=== PATIENT | female | born 1955 | race Two or more races ===

== ENCOUNTER 2023-10-07 16:30 | Emergency (ER) | payer MEDICARE, OTHER ==
[2023-10-07] MEDS ORDERED: HYDROcod/ACETAM 5/325 MG TABLET PO STA (16:55)
[2023-10-07 16:57] VITALS: BP 174/84; O2SAT 98
--- NOTE | 2023-10-07 16:57 | ED Physician Documentation ---
PD HPI MAJOR TRAUMA - Stated complaint Stated Complaint: GLF/BACK INJ - Chief complaint Chief Complaint: Trauma Ext - History obtained from History obtained from: Patient - Additional information Additional information: 68-year-old woman with type 2 diabetes, does take aspirin daily. She was up on a file cabinet last night painting and she fell. She fell on outstretched wrist to try to prevent a head injury but still hit her head. She possibly lost consciousness but is not 100% sure. She complains of severe headache, back pain, and left arm pain especially the wrist. She has tried ibuprofen without relief. PD PAST MEDICAL HISTORY - Past Medical History Past Medical History: Yes Cardiovascular: Hypertension, High cholesterol Endocrine/Autoimmune: Type 2 diabetes - Past Surgical History Past Surgical History: Yes - Present Medications Home Medications: Ambulatory Orders Medication Instructions Recorded Confirmed HYDROcod/ACETAM 5/325 [[place] 5/325] 1 - 2 tab PO Q6H PRN #15 tablet 10/07/23 - Allergies Allergies/Adverse Reactions: Allergies Allergy/AdvReac Type Severity Reaction Status Date / Time metformin AdvReac Unknown Verified 10/07/23 16:48 - Social History Does the pt smoke?: No Smoking Status: Never smoker PD ED PE NORMAL - Vitals Vital signs reviewed: Yes - General General: Alert and oriented X 3, No acute distress - HEENT HEENT: PERRL, EOMI - Neck Neck: No bony TTP - Back Back: Other (Quite tender to the upper and mid thoracic as well as upper lumbar spine) - Extremities Extremities: Other (Left wrist swollen and very tender, she is also tender about the elbow and left shoulder but without hand tenderness. Normal neurovascular function in the left hand.) - Neuro Neuro: Alert and oriented X 3, No motor deficit, No sensory deficit, Normal s peech Eye Opening: Spontaneous Motor: Obeys Commands Verbal: Oriented GCS Score: 15 Results - Vitals Vitals: Vital Signs - 24 hr 10/07/23 16:45 Temperature 36.7 C Heart Rate 90 Respiratory 15 Rate Blood Pressure 174/84 H O2 Saturation 98 - Rads (name of study) X-ray left shoulder and elbow are negative for pathology or fracture. Relevant Findings:: Final report received, [facility] independent interpretation of test Left wrist x-ray does demonstrate a mild distal radius fracture. Relevant Findings:: Final report received, [facility] independent interpretation of test CT of the head, C-spine, TL spines are negative for fracture. Does have degenerative and other incidental findings. Relevant Findings:: Final report received, [facility] independent interpretation of test Procedures - Splint (location) - Minor Left wrist Splint applied by: Physician Type of splint: Fiberglass, Short arm, Volar cock up Other: Patient tolerated well, No complications, Neurovascular intact PD Medical Decision Making - ED course ED course: 68-year-old woman took a fall and has a wrist fracture, but multiple other sites of pain. She was thoroughly imaged without other pertinent positive acute findings. Feeling much better after 1 mg of Dilaudid IM and splinting of the left wrist. Departure - Departure Disposition: 01 Home, Self Care Clinical Impression: Injury resulting from fall from height Back injury Qualifiers: Encounter type: initial encounter Qualified Code(s): S39.92XA - Unspecified injury of lower back, initial encounter Wrist fracture, left Qualifiers: Encounter type: initial encounter Fracture type: closed Qualified Code(s): S62.102A - Fracture of unspecified carpal bone, left wrist, initial encounter for closed fracture Left elbow contusion Qualifiers: Encounter type: initial encounter Qualified Code(s): S50.02XA - Contusion of left elbow, initial encounter Injury of shoulder, left Qualifiers: Encounter type: initial encounter Qualified Code(s): S49.92XA - Unspecified injury of left shoulder and upper arm, initial encounter Head injury Qualifiers: Encounter type: initial encounter Qualified Code(s): S09.90XA - Unspecified injury of head, initial encounter Condition: Good Record reviewed to determine appropriate education?: Yes Instructions: ED Fx Colles Wrist No Redu Requ Follow-Up: Orthopedic Care [Provider Group] Prescriptions: HYDROcod/ACETAM 5/325 [[place] 5/325] 1 - 2 tab PO Q6H PRN #15 tablet PRN Reason: Pain Comments: I sent your prescription electronically to [facility]. We imaged your entire spine and your head as well as the left shoulder and left elbow. Only the wrist fracture was evidence. Keep that splint on and dry and call the orthopedics office tomorrow for an appointment in a week or so for reevaluation and likely casting. The fracture looks fairly mild so doubt they would need to consider surgery. Return for new or worsening symptoms. I am prescribing a short course of narcotic pain medication for you. These are potentially dangerous and addictive medications that should be used carefully. These medications may constipate you. Take an wkhd-ydr-oydttfg stool softener (docusate) twice daily with plenty of water while taking these medications. If you go 24 hours without a bowel movement, take tyfc-oqg-qpduzhs miralax, per package instructions. Do not drink or drive while taking these medications. If you received narcotic or sedating medications while in the emergency department, do not drive for 24 hours. Store this medication in a safe, secure place and out of reach of children. It is a violation of federal law to give or sell this medication to another person or to use in a manner other than prescribed. The ED will not refill narcotic prescriptions, including prescriptions lost or stolen. To dispose of unwanted medications: 1. [facility] provides a [facility] box for medication in pill form only (no liquids) 8:00 am to 4:30 p.m. Sunday-Sunday in the lobby of the [facility], [address] [place] [address]. Empty pills into ziplock bag before disposal. Call [phone] for information. 2.[employer] is a free service available to all [facility] residents. Go to [email or web address] Note that many narcotic pain relievers also contain Tylenol/acetaminophen. Please ensure that your total dose of acetaminophen from all sources does not exceed 3 g (3000 mg) per day. Forms: PCP List Discharge Date/Time: 10/07/23 19:14
--- NOTE | 2023-10-07 17:35 | XRAY Report ---
PROCEDURE: Shoulder 2+V LT INDICATIONS: fall, arm inj TECHNIQUE: 3 views of the shoulder were acquired. COMPARISON: Correlation is made with the accompanying plain films. FINDINGS: Bones: No fractures or dislocations. No suspicious bony lesions. Visualized ribs appear intact. M ild, age-appropriate degenerative change is seen. Soft tissues: No suspicious soft tissue calcifications. The visualized lungs are within normal limi ts. IMPRESSION: No acute bony abnormality. If it would be helpful for clinical management decision making, please consider a dedicated, schedule d shoulder MRI for further evaluation (assuming that there is no contraindication). Reviewed by: Jeffry Knight MD on 10/07/2023 4:33 PM [facility] Approved by: Jeffry Knight MD on 10/07/2023 4:33 PM [facility] Station ID: [id number]
--- NOTE | 2023-10-07 17:35 | XRAY Report ---
PROCEDURE: Elbow 3+V LT INDICATIONS: fall, arm inj TECHNIQUE: 3 views of the elbow were acquired. COMPARISON: Correlation is made with the accompanying plain films. FINDINGS: Bones: No fractures or dislocations. No suspicious bony lesions. Soft tissues: No effusion. No suspicious soft tissue calcifications or masses. IMPRESSION: No acute bony abnormality. Reviewed by: Jeffry Knight MD on 10/07/2023 4:34 PM [facility] Approved by: Jeffry Knight MD on 10/07/2023 4:34 PM [facility] Station ID: [id number]
--- NOTE | 2023-10-07 17:37 | XRAY Report ---
PROCEDURE: Wrist 3+V LT INDICATIONS: fall, wrist inj TECHNIQUE: 3 views of the wrist were acquired. COMPARISON: Correlation is made with the accompanying imaging. FINDINGS: Bones: There is irregularity seen of the distal radius, with suspicion for a minimally displaced, in tra-articular fracture. No associated ulnar fracture is seen. Focal degenerative change is seen involving the first carpometacarpal joint, with milder degenerative changes seen elsewhere. No suspicious lytic or blastic lesions are seen. Soft tissues: No suspicious soft tissue calcifications or masses. IMPRESSION: There is suspicion for a distal radius fracture, although this is not well seen. Please consider a follow-up wrist CT for further evaluation, if clinically appropriate. Reviewed by: Jeffry Knight MD on 10/07/2023 4:[address] [facility] Approved by: Jeffry Knight MD on 10/07/2023 4:[address] [facility] Station ID: [id number]
[2023-10-07] MEDS ORDERED: HYDROmorphone 1 MG/ML CARPUJECT IM STA (17:55)
--- NOTE | 2023-10-07 18:18 | CT Report ---
PROCEDURE: Head WO INDICATIONS: head inj TECHNIQUE: Noncontrast 4.5 mm thick angled axial sections acquired from the foramen magnum to the vertex. For r adiation dose reduction, the following was used: automated exposure control, adjustment of mA and/or kV according to patient size. COMPARISON: Correlation is made with the accompanying imaging. FINDINGS: Image quality: Excellent. CSF spaces: Basal cisterns are patent. No extra-axial fluid collections. Ventricles are normal in size and shape. Brain: No midline shift. No intracranial masses or hemorrhage. Weeks-white matter interface is norm al. Skull and face: Calvarium and visualized facial bones are intact, without suspicious lesions. Sinuses: Visualized sinuses and mastoids are clear. IMPRESSION: No intracranial hemorrhage is seen. No significant intracranial abnormality is seen. Reviewed by: Jeffry Knight MD on 10/07/2023 5:17 PM [facility] Approved by: Jeffry Knight MD on 10/07/2023 5:17 PM [facility] Station ID: [id number]
--- NOTE | 2023-10-07 18:19 | CT Report ---
PROCEDURE: Cervical Spine WO INDICATIONS: fall neck inj TECHNIQUE: Noncontrast 3 mm thick sections acquired from the skull base to the T4 level. Sagittal and coronal r eformats were then constructed. For radiation dose reduction, the following was used: automated exp osure control, adjustment of mA and/or kV according to patient size. COMPARISON: Correlation is made with the accompanying imaging. FINDINGS: Image quality: Excellent. Bones: No fractures or dislocations. Visualized superior ribs are intact. There is moderate disc space narrowing seen at C5-C6, with associated endplate irregularity and scler osis and mild posteriorly directed endplate osteophytes. At C6-C7, there is at least moderate disc sp andrea narrowing, with mild posterior directed endplate osteophytes. Milder degenerative changes are see n elsewhere. Soft tissues: Prevertebral soft tissues are normal in thickness. No paravertebral hematomas. No ap ical pneumothoraces. Atherosclerotic calcification is seen. IMPRESSION: Negative for acute cervical spine fracture. Cervical spine degenerative changes are seen, which are worst inferiorly. Reviewed by: Jeffry Knight MD on 10/07/2023 5:18 PM [facility] Approved by: Jeffry Knight MD on 10/07/2023 5:18 PM [facility] Station ID: [id number]
--- NOTE | 2023-10-07 18:22 | CT Report ---
PROCEDURE: Thoracic Spine WO INDICATIONS: fall, back inj TECHNIQUE: Noncontrast 3 mm thick sections acquired through the region of interest in the thoracic spine. Sagit sanjiv and coronal reformats were then constructed. For radiation dose reduction, the following was used : automated exposure control, adjustment of mA and/or kV according to patient size. COMPARISON: Correlation is made with the accompanying imaging. FINDINGS: Image quality: This study is limited by quantum mottle artifact. Bones: There is normal overall bony alignment. No acute vertebral body compression fractures. No s uspicious sclerotic or lytic bony lesions. Central spinal canal is of normal overall caliber. At the T6-T7 level, there is focal endplate sclerosis, with a posteriorly directed central disc osteo phyte protrusion, as on series 4 image 56 and on series 8 image 29. Moderate central canal narrowing is seen. Milder degenerative changes are seen elsewhere. Several areas of vertebral body hemangiomas can be seen, with prominent vertically oriented trabecula tions within the vertebral bodies. Soft tissues: No paravertebral masses or hematomas. Visualized posteromedial lungs appear clear. M ild to moderate coronary artery calcification is seen. IMPRESSION: Negative for acute fracture. Focal degenerative change is seen at T6-T7. Additional findings: Several vertebral body hemangiomas Reviewed by: Jeffry Knight MD on 10/07/2023 5:21 PM [facility] Approved by: Jeffry Knight MD on 10/07/2023 5:21 PM [facility] Station ID: [id number]
--- NOTE | 2023-10-07 18:27 | CT Report ---
PROCEDURE: Lumbar Spine WO INDICATIONS: fall, back inj TECHNIQUE: Noncontrast 3 mm thick sections acquired from the T12 level to the sacrum. Sagittal and coronal refo rmats were constructed. For radiation dose reduction, the following was used: automated exposure co ntrol, adjustment of mA and/or kV according to patient size. COMPARISON: Correlation is made with the accompanying imaging. FINDINGS: Image quality: This study is limited by quantum mottle artifact. Bones: No acute vertebral body compression fractures. No suspicious lytic or blastic bony lesions. Central spinal caliber is of normal overall caliber. No pars defects. Minimal levoconvex lumbar sclerotic curvature is seen. A right-sided sacral stimulator is seen. T12-L1: Normal in appearance. L1-L2: No significant abnormality is seen. L2-L3: Mild loss of disc height is seen. Moderate disc bulge is seen, which is eccentric to the le ft. There is mild to moderate right-sided and at least moderate left-sided neuroforaminal narrowing. Moderate central canal narrowing is seen. L3-L4: The disc height is relatively well preserved. Moderate disc bulge is seen, with a central di sc protrusion. There is at least moderate bilateral neuroforaminal narrowing seen. At least moderate central canal narrowing is seen. L4-L5: The disc height is well-preserved. Moderate disc bulge is seen at this level. Moderate fac et hypertrophy is seen. Moderate bilateral neural foraminal narrowing is seen. Moderate central can al narrowing is seen. L5-S1: Mild to moderate loss of disc height is seen. Vacuum disc phenomenon is seen at this level. Moderate disc bulge is seen, with a central disc osteophyte protrusion. Moderate facet hypertrophy is seen. Moderate bilateral neural foraminal narrowing is seen. Moderate central canal narrowing is seen. Soft tissues: No retroperitoneal masses or hematomas. Visualized aorta is normal in caliber. Ather osclerotic calcification is seen. IMPRESSION: Negative for acute fracture. Multiple levels of lumbar spine degenerative change can be seen, which are overall worst at the L5-S1 level. Additional findings: Right-sided sacral stimulator Reviewed by: Jeffry Knight MD on 10/07/2023 5:26 PM [facility] Approved by: Jeffry Knight MD on 10/07/2023 5:26 PM [facility] Station ID: [id number]
[2023-10-07] MEDS ORDERED: HYDROcod/ACET 5/325 Prepack 4 PO STA (18:32)
== END 2023-10-07 19:14 | disposition home or self-care (01) ==
LOC: ED 16:30
DX: S39.92XA Unspecified injury of lower back, initial encounter (principal); S62.102A Fracture of unspecified carpal bone, left wrist, initial encounter for closed fracture; S50.02XA Contusion of left elbow, initial encounter; S49.92XA Unspecified injury of left shoulder and upper arm, initial encounter; S09.90XA Unspecified injury of head, initial encounter; W17.89XA Other fall from one level to another, initial encounter; E11.9 Type 2 diabetes mellitus without complications; Z79.84 Long term (current) use of oral hypoglycemic drugs; I10 Essential (primary) hypertension
CPT/HCPCS: 70450; 72125; 72128; 72131; 73030; 73080; 73110; 96372; 99284; A9270; J1170

== ENCOUNTER 2023-10-11 08:00 | Outpatient (CLI) | payer MEDICARE ==
--- NOTE | 2023-10-11 16:50 | XRAY Report ---
PROCEDURE: Wrist 3 View LT INDICATIONS: LEFT WRIST PAIN TECHNIQUE: 3 views of the wrist were acquired. COMPARISON: Left wrist radiographs 10/07/2023. FINDINGS: Bones: Decreased prominence of cortical irregularity at the distal radius. Mild degenerative change s at the first CMC joint, unchanged. No suspicious bony lesions. Soft tissues: No suspicious soft tissue calcifications or masses. IMPRESSION: Decreased prominence of cortical irregularity of the distal radius, possible minimally displaced intr a-articular fracture. Reviewed by: Lela Gonsales MD on 10/11/2023 4:49 PM PST Approved by: Lela Gonsales MD on 10/11/2023 4:49 PM PST Station ID: [id number]
== END 2023-10-11 23:59 | disposition home or self-care (01) ==
LOC: DI.WOS 08:00
PROVIDERS: ATTEND Physician Assistant Surgical
DX: M25.532 Pain in left wrist (principal)

== ENCOUNTER 2023-10-29 08:00 | Outpatient (CLI) | payer MEDICARE ==
--- NOTE | 2023-10-29 18:48 | XRAY Report ---
PROCEDURE: Wrist 3 View LT INDICATIONS: LEFT WRIST FRACTURE TECHNIQUE: 3 views of the wrist were acquired. COMPARISON: 10/11/2023 FINDINGS: Bones: Persistent visualization of subtle minimally displaced distal radius fracture extending to th e articular surface. No suspicious bony lesions. Soft tissues: No suspicious soft tissue calcifications or masses. IMPRESSION: Distal radial fracture extending to the articular surface is still mildly evident. Reviewed by: Ovi Diane MD on 10/29/2023 6:47 PM PST Approved by: Ovi Diane MD on 10/29/2023 6:47 PM PST Station ID: [id number]
== END 2023-10-29 23:59 | disposition home or self-care (01) ==
LOC: DI.WOS 08:00
PROVIDERS: ATTEND Physician Assistant Surgical
DX: S52.502D Unspecified fracture of the lower end of left radius, subsequent encounter for closed fracture with routine healing (principal)

== ENCOUNTER 2023-11-29 08:00 | Outpatient (CLI) | payer MEDICARE ==
--- NOTE | 2023-11-29 16:58 | XRAY Report ---
PROCEDURE: Wrist 3 View LT INDICATIONS: LEFT WRIST FRACTURE TECHNIQUE: 3 views of the wrist were acquired. COMPARISON: 10/29/2023. FINDINGS: Bones: Ongoing healing of distal radial fracture. No new fracture identified. Alignment is similar c ompared to prior. Soft tissues: No suspicious soft tissue calcifications or masses. IMPRESSION: Ongoing healing of distal radial fracture in unchanged alignment. Reviewed by: Lela Gonsales MD on 11/29/2023 4:57 PM PST Approved by: Lela Gonsales MD on 11/29/2023 4:57 PM PST Station ID: [id number]
== END 2023-11-29 23:59 | disposition home or self-care (01) ==
LOC: DI.WOS 08:00
PROVIDERS: ATTEND Physician Assistant Surgical
DX: S52.502D Unspecified fracture of the lower end of left radius, subsequent encounter for closed fracture with routine healing (principal)

== ENCOUNTER 2024-01-24 11:33 | Outpatient (CLI) | payer MEDICARE ==
[2024-01-24 17:41] LABS: BASOPHILS # (AUTO) 0.1 10^3/uL (0.0-0.1); BASOPHILS % (AUTO) 0.7 %; EOSINOPHILS # (AUTO) 0.2 10^3/uL (0.0-0.7); EOSINOPHILS % (AUTO) 2.1 %; HCT - HEMATOCRIT 40.5 % (37.0-47.0); HGB - HEMOGLOBIN 13.2 g/dL (12.0-16.0); MEAN CORPUSCULAR HEMOGLOBIN 30.1 pg (27.0-31.0); MEAN CORPUSCULAR HGB CONC 32.6 g/dL (32.0-36.0); MEAN CORPUSCULAR VOLUME 92.5 fL (81.0-99.0); MEAN PLATELET VOLUME 11.5 fL (7.9-10.8); MONOCYTES # (AUTO) 0.8 10^3/uL (0.0-1.0); MONOCYTES % (AUTO) 9.2 %; NEUTROPHILS # (AUTO) 5.7 10^3/uL (1.5-6.6); NEUTROPHILS % (AUTO) 64.8 %; PLT - PLATELET COUNT 333 10^3/uL (130-450); RED BLOOD COUNT 4.38 10^6/uL (4.20-5.40); RED CELL DISTRIBUTION WIDTH 12.6 % (12.0-15.0); WHITE BLOOD COUNT 8.8 x10^3/uL (4.8-10.8)
[2024-01-24 18:07] LABS: THYROID STIMULATING HORMONE 2.79 uIU/mL (0.34-5.60)
[2024-01-24 18:25] LABS: ALBUMIN 4.1 g/dL (3.2-5.5); ALBUMIN/GLOBULIN RATIO 1.2 (1.0-2.2); ALKALINE PHOSPHATASE 77 IU/L (42-121); ALT ALANINE AMINOTRANSFERASE 81 IU/L (10-60); AST ASPARTATE AMINOTRANSFERASE 72 IU/L (10-42); BILIRUBIN,TOTAL 0.5 mg/dL (0.2-1.0); BUN - BLOOD UREA NITROGEN 23 mg/dL (6-20); CALCIUM 9.9 mg/dL (8.5-10.3); CARBON DIOXIDE - CO2 23 mmol/L (21-32); CHLORIDE 102 mmol/L (101-111); CHOLESTEROL 192 mg/dL; CREATININE 1.5 mg/dL (0.6-1.3); GFR - MDRD 35 (>89); GLUCOSE 253 mg/dL (74-104); HDL CHOLESTEROL 48 mg/dL; LDL CHOLESTEROL,CALCULATED 105 mg/dL; LDL/HDL RATIO 2.2 (<4.4); POTASSIUM 4.2 mmol/L (3.5-4.5); SODIUM 137 mmol/L (135-145); TOTAL PROTEIN 7.4 g/dL (6.4-8.9); TRIGLYCERIDES 196 mg/dL (48-352); VLDL CHOLESTEROL 39 mg/dL
[2024-01-24 20:04] LABS: ESTIMATED AVERAGE GLUCOSE 292 mg/dL (70-100); HEMOGLOBIN A1c% 11.8 % (4.27-6.07)
== END 2024-01-24 11:34 | disposition home or self-care (01) ==
LOC: LAB.N 11:33
PROVIDERS: ATTEND Family Medicine
DX: I10 Essential (primary) hypertension (principal); E78.5 Hyperlipidemia, unspecified; E11.65 Type 2 diabetes mellitus with hyperglycemia
CPT/HCPCS: 36415; 80053; 80061; 83036; 83721; 84443; 85025